=== PATIENT | male | born 1980 | race Caucasian/White ===

== ENCOUNTER 2016-11-22 13:34 | Emergency (ER) | payer BC ==
--- NOTE | 2016-11-22 14:33 | RAD ---
Left shoulder 11/22/2016 HISTORY: Rule out fracture dislocation. COMPARISON: No prior FINDINGS: There is anterior inferior dislocation of the left humeral head with respect to the glenoid. There is minor irregularity along the inferior glenoid which is of uncertain etiology though the possibility of avulsion type fracture of the left inferior lip of the glenoid cannot be excluded. . Impression: There is a anterior inferior dislocation of the left humeral head with respect to the glenoid. Slight irregularity inferior lip glenoid could represent avulsion type fracture.
[2016-11-22] MEDS ORDERED: Midazolam 2 MG/2 ML VIAL ONE ×2 (14:41→14:56)
[2016-11-22] MEDS ORDERED: Midazolam 2 MG/2 ML VIAL IVP ONE ×2 (14:45→14:57)
--- NOTE | 2016-11-22 16:04 | C.PDOC ---
History Of Present Illness 36-year-old male, presents to the emergency department with complaints of a dislocated left shoulder, while playing basketball. Patient states he has a Hx of dislocated shoulder multiple times in the past. Patient denies direct trauma to shoulder. States he has a Hx of drug abuse and is currently in a program. Patient denies any numbness, tingling, nausea/vomiting, or any other associated symptoms. No other complaints at this time. Chief Complaint (Nursing): Upper Extremity Problem/Injury History Per: Patient History/Exam Limitations: no limitations Current Symptoms Are (Timing): Still Present Severity: Severe Past Medical History Reviewed: Historical Data, Nursing Documentation, Vital Signs Vital Signs: Last Vital Signs Temp 98.2 F 11/22/16 17:38 Pulse 74 11/22/16 17:38 Resp 19 11/22/16 17:38 BP 139/74 11/22/16 17:38 Pulse Ox 100 11/22/16 18:30 Family History: States: Hypertension - Social History Hx Alcohol Use: Yes Hx Substance Use: Yes (marijuana) Review Of Systems Gastrointestinal: Negative for: Nausea, Vomiting Musculoskeletal: Positive for: Shoulder Pain (LEFT). Negative for: Back Pain Neurological: Negative for: Weakness, Numbness Physical Exam - Physical Exam Appears: Non-toxic, Other (moderate-severe pain) Skin: Warm, Dry, No Rash Extremity: Tenderness, Capillary Refill (<2 seconds), Other (Left shoulder is dislocated. Distal pulses intact. ) Neurological/Psych: Oriented x3 ED Course And Treatment O2 Sat by Pulse Oximetry: 100 Medical Decision Making Medical Decision Making: Impression: 36y/o M, (+)substance abuse (currently in a program x4 months) comes in s/p shoulder dislocation. Plan: * Versed 4mg, 2mg * Fentanyl, 100mcg * X-Ray: L Shoulder * Reassess and Disposition Progress: After medication administration, patient is awake and alert. No sedation, and pain persists. Will page ortho Consult: 15:40 Dr Ferraro's service was called. Pending call back 15:20 Service called. Pending call back 16:00 Dr Bret avila. Pending call back Progress: Patients shoulder successfully reduced. PROCEDURE: REDUCTION Performed by the emergency provider Consent: Informed consent, after discussion of the risks, benefits, and alternatives to the procedure, was obtained. Timeout: A timeout to verify the correct patient, procedure, and site was performed immediately prior to the procedure. Indication: Dislocated Location: L shoulder Sedation: Versed and Fentanyl. See MAR for details. Pre-procedure neurovascular status: Distal neurovascular status intact. Technique: shoulder reduction. Post-procedure neurovascular status: Distal neurovascular status remains intact. Confirmation: Post-reduction films confirm reduction. See post-procedure X-Ray interpretation. Post-procedure: Patient tolerated the procedure well with no immediate complications. The reduction site was immobilized with a shoulder immobilizer. Disposition - Disposition Referrals: Jose Ferraro III, MD [Staff Provider] - Disposition: HOME/ ROUTINE Disposition Time: 17:00 Condition: IMPROVED Additional Instructions: Thank you for letting us take care of you today. Your provider was Dr. Jeffrey. You were treated for shoulder dislocation. The emergency medical care you received today was directed at your acute symptoms. If you were prescribed any medication, please fill it and take as directed. It may take several days for your symptoms to resolve. Return to the Emergency Department if your symptoms worsen, do not improve, or if you have any other problems. Please contact your doctor or call one of the physicians/clinics you have been referred to that are listed on the Patient Visit Information form that is included in your discharge packet. Bring any paperwork you were given at discharge with you along with any medications you are taking to your follow up visit. Our treatment cannot replace ongoing medical care by a primary care provider (PCP) outside of the emergency department. Thank you for allowing the [facility] team to be part of your care today. Follow up with Dr. Ferraro, the orthopedic surgeon, next week. DO NOT TAKE YOUR SHOULDER OUT OF THE SLING AT ANYTIME UNTIL YOU ARE SEEN BY DR. FERRARO. PLEASE BE ADVISED THE ABOVE PATIENT RECEIVED VERSED AND FENTANYL IN THE EMERGENCY ROOM FOR A PROCEDURE. Instructions: Shoulder Dislocation (ED) - Clinical Impression Clinical Impression: Shoulder dislocation - Scribe Statement The provider has reviewed the documentation as recorded by the Мария Stein All medical record entries made by the Scribmika were at my direction and personally dictated by me. I have reviewed the chart and agree that the record accurately reflects my personal performance of the history, physical exam, medical decision making, and the department course for this patient. I have also personally directed, reviewed, and agree with the discharge instructions and disposition.
[2016-11-22] MEDS ORDERED: Lidocaine 2% Inj (20ml) INFIL STA (16:13)
[2016-11-22 17:42] VITALS: BP 139/74; PULSE 74; RESP 19; TEMP 98.2
[2016-11-22 18:17] VITALS: O2SAT 100
--- NOTE | 2016-11-22 18:39 | RAD ---
PROCEDURE: Left shoulder dated the 11/22/2016 HISTORY: s/p reduction COMPARISON: Comparison made with prior radiographs left shoulder obtained earlier same day TECHNIQUE: Single frontal view of the left shoulder performed FINDINGS: Current study reveals post reduction previously noted anterior inferior dislocated left humeral head with respect to the glenoid. The previously noted irregularity along the inferior glenoid lip/rim is not appreciated on this study due to overlying humeral head. The possibility of a avulsion injury of the glenoid rim cannot be excluded. Consider followup CT scan and or MRI. IMPRESSION: Interval post reduction previously noted anterior inferior dislocated left humeral head with respect to the glenoid.The previously noted irregularity along the inferior glenoid lip/rim is not appreciated on this study due to overlying humeral head. The possibility of a avulsion injury of the glenoid rim cannot be excluded. Consider followup CT scan and or MRI. This report placed in PA review folder for followup
== END 2016-11-22 17:42 | disposition home or self-care (01) ==
LOC: C.ER 13:34
DX: S43.005A Unspecified dislocation of left shoulder joint, initial encounter (principal); X58.XXXA Exposure to other specified factors, initial encounter; Y93.67 Activity, basketball
CPT/HCPCS: 23650; 73020; 73030; 96374; 96375; 96376; 99285; J2250; J3010